=== PATIENT | male | born 1995 ===

== ENCOUNTER 2018-01-01 17:18 | Emergency (ER) | payer OTHER ==
[2018-01-01 17:27] VITALS: RESP 16; TEMP 98
--- NOTE | 2018-01-01 17:40 | ED PDOC ---
HPI: Seizure Time Seen by Provider: 01/01/18 17:29 Chief Complaint (Nursing): Seizure History Per: Patient, Family Recent Seizure Activity Began: Just Before Arrival Number Of Seizures: Multiple Precipitating Factor(s): None Associated Symptoms: denies: Incontinence Of Urine, Injury As A Result Of Seizure Activity Severity: Mild Additional Complaint(s): Possible seizure episode witnessed by girlfriend lasted approx 30 seconds. Shaking upper and lower ext. Pt had nosebleed prior to episode, felt weak and dizzy. Has no recollection of actual event. Denies injury or falling. Girlfriend noted second episode immediately afterward. Past Medical History Vital Signs: Last Vital Signs Temp 98 F 01/01/18 17:23 Pulse 76 01/01/18 17:23 Resp 16 01/01/18 17:23 BP 107/67 01/01/18 17:23 Pulse Ox 98 01/01/18 17:41 - Medical History PMH: No Chronic Diseases - Family History Family History: States: Unknown Family Hx - Social History Drugs: Cannabis - Allergies Allergies/Adverse Reactions: Allergies Allergy/AdvReac Type Severity Reaction Status Date / Time No Known Allergies Allergy Verified 01/01/18 17:22 Review of Systems ROS Statement: Except As Marked, All Systems Reviewed And Found Negative Neurological: Positive for: Seizures Physical Exam - Reviewed Nursing Documentation Reviewed: Yes Vital Signs Reviewed: Yes - Physical Exam Appears: Positive for: Non-toxic, No Acute Distress Head Exam: Positive for: ATRAUMATIC, NORMAL INSPECTION, NORMOCEPHALIC Skin: Positive for: Normal Color, Warm, DRY Eye Exam: Positive for: EOMI, Normal appearance, PERRL ENT: Positive for: Normal ENT Inspection Neck: Positive for: Normal, Painless ROM Cardiovascular/Chest: Positive for: Regular Rate, Rhythm Respiratory: Positive for: CNT, Normal Breath Sounds Gastrointestinal/Abdominal: Positive for: Normal Exam, Soft Back: Positive for: Normal Inspection Extremity: Positive for: Normal ROM Neurologic/Psych: Positive for: Alert, Oriented. Negative for: Motor/Sensory Deficits - Laboratory Results Result Diagrams: 01/01/18 18:15 01/01/18 18:15 - ECG O2 Sat by Pulse Oximetry: 98 Disposition - Clinical Impression Clinical Impression: Witnessed seizure - Patient ED Disposition Is Patient to be Admitted: Transfer of Care - Disposition Disposition: Transfer of Care Disposition Time: 19:00 Condition: FAIR Forms: [facility] (Frisian) Patient Signed Over To: Arlene Ferrell
[2018-01-01 18:20] LABS: BASO # 0.1 K/uL (0.0-0.2); BASO % 0.8 % (0.0-2.0); EOS % 0.7 % (0.0-4.0); HEMOGLOBIN 13.5 g/dL (12.0-18.0); LYMPH # 2.1 K/uL (1.0-4.3); LYMPH % 30.5 % (20.0-40.0); MEAN CELL VOLUME 92.7 fl (80.0-94.0); MEAN CORPUSCULAR HEMOGLOBIN 30.6 pg (27.0-31.0); MEAN PLATELET VOLUME 9.6 fl (7.2-11.7); MONO # 0.7 K/uL (0.0-0.8); MONO % 9.9 % (0.0-10.0); NEUT % 58.1 % (50.0-75.0); RBC 4.4 Mil/uL (4.40-5.90); WHITE BLOOD COUNT 6.9 K/uL (4.8-10.8)
[2018-01-01 18:39] LABS: ALB/GLOB RATIO 1.2 (1.0-2.1); ALBUMIN 4.5 g/dL (3.5-5.0); ALT/SGPT 38 U/L (21-72); AST/SGOT 34 U/L (17-59); BLOOD UREA NITROGEN 16 mg/dl (9-20); GFR AFRICAN-AMERICAN > 60; GFR NON-AFRICAN AMERICAN > 60
--- NOTE | 2018-01-01 19:17 | ED PDOC ---
"- Laboratory Results Result Diagrams: 01/01/18 18:15 01/01/18 18:15 - ECG O2 Sat by Pulse Oximetry: 98 (RA) Pulse Ox Interpretation: Normal Medical Decision Making Medical Decision Makin:00: Transfer of staff from Dr. Nur to Dr. Ferrell CT Head and final disposition. [facility] Final Radiology Report Call: [phone] assistance Online chat: [email or web address] Patient Name: ARIELA DEXTER (Age): 1995 22 Gender: M Date of Exam: 01/01/2018 Referring Physician: Antoine Nur # of Images: 275 Ordered As: CT HEAD W O CONTRAST Page 1 of 2 EXAM: CT Head Without Intravenous Contrast EXAM DATE/TIME: 01/01/2018 5:36 PM CLINICAL HISTORY: 22 years old, male; Injury or trauma; Fall; Initial encounter; Unconscious; Injury date: 01-01-2018; Injury details: Pt states he fell due to seizure; Additional info: R/O bleed TECHNIQUE: Axial computed tomography images of the head/brain without intravenous contrast. All CT scans at this facility use one or more dose reduction techniques, viz.: automated exposure control; ma/kV adjustment per patient size (including targeted exams where dose is matched to indication; i.e. head); or iterative reconstruction technique. Coronal and sagittal reformatted images were created and reviewed. COMPARISON: No relevant prior studies available. FINDINGS: BRAIN: No significant acute abnormality identified. No acute hemorrhage seen within the brain. No acute extra-axial fluid collections visualized. No evidence of significant mass effect within the brain. VENTRICLES: No evidence of significant hydrocephalus. BONES/JOINTS: No acute fractures or other acute bony abnormality noted. SOFT TISSUES: No acute abnormality of the visualized soft tissues is seen. SINUSES: Pansinus inflammatory disease. Fluid in the right maxillary sinus, suspicious for acute sinusitis. Visualized sinus razo appear intact. Mild to moderate mucosal thickening in the bilateral maxillary, ethmoid, and frontal sinuses. MASTOID AIR CELLS: Mastoid air cells appear clear. IMPRESSION: - No evidence of acute intracranial injury or fractures. - Sinusitis. Please see above for a full description. - See above for remaining findings. Thank you for allowing us to participate in the care of your patient. ARIELA DEXTER | Final Radiology Report CONFIDENTIALITY STATEMENT This report is intended only for use by the referring physician, and only in accordance with law. If you received this in error, call [phone]. Page 2 of 2 Dictated and Authenticated by: Olesya Shaw MD 01/01/2018 7:41 PM Eastern Time ([place] & [place]) 20:41: Spoke with Dr. Martin, Neurology, who recommended that the patient be admitted for observation and have an MRI in the morning. [id number] Patients refuses to be admitted to hospital and will leave AMA. Scribe Attestation: Documented by Ursula Pleitez, acting as a scribe for Arlene Ferrell MD. Provider Scribe Attestation: All medical record entries made by the Scribe were at my direction and personally dictated by me. I have reviewed the chart and agree that the record accurately reflects my personal performance of the history, physical exam, medical decision making, and the department course for this patient. I have also personally directed, reviewed, and agree with the discharge instructions and disposition. Disposition Discussed With .: Rich Martin Doctor Will See Patient In The: Office Counseled Patient/Family Regarding: Studies Performed, Diagnosis, Need For Followup - Clinical Impression Clinical Impression: Witnessed seizure, First time seizure, Syncope, Left against medical advice, Sinusitis, acute - POA Present On Arrival: Falls Or Trauma - Disposition Referrals: Rich Martin MD [Medical Doctor] - Kobe Corona MD [Staff Provider] - Disposition: AGAINST MEDICAL ADVICE Disposition Time: 21:46 Condition: GOOD Additional Instructions: You are leaving against medical advice. Return for worsening at once. Follow up with neurologist or your PCP in [address] You will be called in 2-3 days for follow up. Prescriptions: Amoxicillin/Clavulanate [Augmentin 875 MG-125 MG] 1 tab PO BID #20 tab Instructions: Syncope (Fainting), Seizures, Adult (DC), Leaving Against Medical Advice, Driving Restrictions Forms: [employer] ([place] Islander), [facility] ED School/Work Excuse Against Medical Advice - AMA Patient Left Against Medical Advice: The patient declines admission to the hospital and wishes to leave the Emergency Department. This action is against my medical advice. This decision was made with informed refusal. The patient was told that admission to the hospital is necessary. Explanation of the reasons why were discussed. The risks of leaving were explained to the patient and include, but are not limited to, worsening of known or currently unknown conditions, permanent disability and from undiagnosed or untreated conditions. The patient has the capacity to make this informed decision and understands my explanation of the current medical problem and risks of leaving. The patient voluntarily accepts these risks and signed an AMA form documenting our conversation. The patient was given the opportunity to ask questions and reconsider. The patient was encouraged to return to the Emergency Department at any time for further care."
--- NOTE | 2018-01-01 19:41 | CT ---
EXAM: CT Head Without Intravenous Contrast EXAM DATE/TIME: 01/01/2018 5:36 PM CLINICAL HISTORY: 22 years old, male; Injury or trauma; Fall; Initial encounter; Unconscious; Injury date: 01-01-2018; Injury details: Pt states he fell due to seizure; Additional info: R/O bleed TECHNIQUE: Axial computed tomography images of the head/brain without intravenous contrast. All CT scans at this facility use one or more dose reduction techniques, viz.: automated exposure control; ma/kV adjustment per patient size (including targeted exams where dose is matched to indication; i.e. head); or iterative reconstruction technique. Coronal and sagittal reformatted images were created and reviewed. COMPARISON: No relevant prior studies available. FINDINGS: BRAIN: No significant acute abnormality identified. No acute hemorrhage seen within the brain. No acute extra-axial fluid collections visualized. No evidence of significant mass effect within the brain. VENTRICLES: No evidence of significant hydrocephalus. BONES/JOINTS: No acute fractures or other acute bony abnormality noted. SOFT TISSUES: No acute abnormality of the visualized soft tissues is seen. SINUSES: Pansinus inflammatory disease. Fluid in the right maxillary sinus, suspicious for acute sinusitis. Visualized sinus razo appear intact. Mild to moderate mucosal thickening in the bilateral maxillary, ethmoid, and frontal sinuses. MASTOID AIR CELLS: Mastoid air cells appear clear. IMPRESSION: - No evidence of acute intracranial injury or fractures. - Sinusitis. Please see above for a full description. - See above for remaining findings.
[2018-01-01 20:25] LABS: BARBITURATES, UR NEGATIVE (NEGATIVE); BENZODIAZEPINES, UR NEGATIVE (NEGATIVE); OPIATES, UR NEGATIVE (NEGATIVE); PHENCYCLIDINE, UR NEGATIVE (NEGATIVE)
[2018-01-01 21:55] VITALS: BP 114/57; PULSE 66
[2018-01-01 21:57] VITALS: O2SAT 98
--- NOTE | 2018-01-02 11:46 | CARD ---
APPROVED REPORT EKG Measurement Heart [id number] KS [id number] <Conclusion> Sinus rhythm with short KS Moderate voltage criteria for LVH, may be normal variant Early repolarization Borderline ECG
== END 2018-01-01 21:57 | disposition left against medical advice (07) ==
LOC: H.ER 17:18
DX: R56.9 Unspecified convulsions (principal); S09.90XA Unspecified injury of head, initial encounter; W19.XXXA Unspecified fall, initial encounter; Y92.89 Other specified places as the place of occurrence of the external cause; J01.90 Acute sinusitis, unspecified